=== PATIENT | female | born 2000 | race African-American/Black ===

== ENCOUNTER 2025-04-08 09:42 | Emergency (ER) | payer OTHER ==
[~2025-04-08] VITALS: Ht 157.5 cm; Wt 76.3 kg
[2025-04-08] MEDS ORDERED: IOPAMIDOL 370 MG/ML 100 ML INFUS..BTL INJ ONE (10:35)
[2025-04-08] MEDS ORDERED: DICYCLOMINE HCL10 MG PO (12:07)
[2025-04-08] MEDS: DICYCLOMINE HCL 20 MG/2 ML VIAL IM ONE (12:29)
[2025-04-08] MEDS: KETOROLAC TROMETHAMINE 30 MG/ML VIAL IV STA (12:30)
[2025-04-08 12:36] VITALS: PULSE 69; RESP 16; TEMP 98.1; O2SAT 100
== END 2025-04-08 12:36 | disposition home or self-care (01) ==
LOC: FSED 09:52
DX: R10.31 Right lower quadrant pain (principal); K52.9 Noninfective gastroenteritis and colitis, unspecified; F17.210 Nicotine dependence, cigarettes, uncomplicated
CPT/HCPCS: 74177; 80048; 80076; 81003; 81025; 85025; 96372; 96374; 99284; J0500; J1885; Q9967